=== PATIENT | female | born 1990 | race Caucasian/White ===

== ENCOUNTER 2021-03-23 15:55 | Emergency (ER) | END 2021-03-23 16:20 | disposition left against medical advice (07) | LOC: CSHERS 15:55 | DX: Z53.21 Procedure and treatment not carried out due to patient leaving prior to being seen by health care provider (principal) ==

== ENCOUNTER 2022-06-29 13:04 | Emergency (ER) | payer BC ==
[2022-06-29 14:06] LABS: #Basophils 0.1 10x3/uL (0.0-0.2); #Eosinphils 0.1 10x3/uL (0.0-0.5); #Monocytes 0.4 10x3/uL (0.0-1.1); #Neutrophils 6.5 10x3/uL (1.5-8.4); %Basophils 0.5 % (0.0-2.0); %Eosinophils 0.6 % (0.0-6.0); %Lymphocytes 28.2 % (18.0-47.0); %Monocytes 4.4 % (0.0-10.0); %Neutrophils 65.9 % (40.0-75.0); Hemoglobin 11.8 g/dL (12.0-15.5); Mean Corpuscular HGB CONC 34.3 g/dL (32.0-36.0); Mean Corpuscular Hemoglobin 30.3 pg (27.0-33.0); Mean Corpuscular Volume 88.4 fl (81.6-98.3); Mean Platelet Volume 9.7 fl (7.4-10.4); Platelet Count 219 10x3/uL (150-450); RBC Distribution Width 13.6 % (11.5-14.5); Red Blood Cell (RBC) Count 3.89 10x6/uL (3.90-5.03); White Blood Cell (WBC) Count 9.9 10x3/uL (3.5-10.5)
[2022-06-29 14:17] LABS: Bilirubin Neg (Negative); Blood, Urine Negative (Negative); Clarity Clear (Clear); Glucose, Urine (Dipstick) Normal (Negative); Ketone, Urine Negative (Negative); Leukocyte Negative (Negative); Nitrite Negative (Negative); Protein, Urine (Dipstick) Negative (Neg-Trace); Specific Gravity, Urine 1.005 (1.005-1.030); Urobilinogen Normal mg/dL (Less than 2); pH, Urine 6.5 (5.0-9.0)
[2022-06-29 14:28] LABS: ALT (SGPT) 6 U/L (8-55); AST (SGOT) 14 U/L (5-34); Albumin 4.1 g/dL (3.5-5.0); Alkaline Phosphatase 49 U/L (40-110); Anion Gap 14 mmol/L (10-20); BUN (Urea Nitrogen) Less than 4 mg/dL (7.0-18.7); Bilirubin, Total 0.2 mg/dL (0.2-1.2); Calc. Creatinine Clearance 0 mL/min (70-130); Calcium 9.1 mg/dL (7.8-10.44); Carbon Dioxide 20 mmol/L (22-29); Chloride 106 mmol/L (98-107); Estimated GFR 122; Globulin 2.5 g/dL (2.4-3.5); Glucose 81 mg/dL (70-105); Protein, Total 6.6 g/dL (6.0-8.3); Sodium 136 mmol/L (136-145)
== END 2022-06-29 17:28 | disposition home or self-care (01) ==
LOC: CSHERS 13:04
DX: O20.9 Hemorrhage in early pregnancy, unspecified (principal); Z3A.09 9 weeks gestation of pregnancy
CPT/HCPCS: 36415; 76856; 80053; 81003; 84702; 85025; 86900; 86901

== ENCOUNTER 2022-09-03 09:08 | Outpatient (CLI) | payer BC | END 2022-09-03 09:09 | disposition home or self-care (01) | LOC: CSHULT 09:08 | PROVIDERS: ATTEND Nurse Practitioner Women's Health | DX: Z34.81 Encounter for supervision of other normal pregnancy, first trimester (principal) | CPT/HCPCS: 76805 ==

== ENCOUNTER 2022-12-24 10:29 | Inpatient (IN) | payer BC ==
[2022-12-24 11:30] VITALS: BMI 24.7
[2022-12-24 12:15] LABS: Fetal Membranes Rupture No Membranes Rupture (No Rupture)
[2022-12-24] MEDS ORDERED: hydrALAZINE 20 MG/ML VIAL SLOW IVP PRN ×3 (13:06→21:43)
[2022-12-24] MEDS ORDERED: Lactated Ringer's 1,000 ML IV SCH (13:15)
[2022-12-24] MEDS ORDERED: fentaNYL 50 mcg/mL 1 mL Vial SLOW IVP PRN (13:15)
[2022-12-24] MEDS ORDERED: Diphenoxylate HCl/Atropine Tablet PO PRN (13:15)
[2022-12-24] MEDS ORDERED: HYDROcodone/Acetaminophen 5/325 mg Tablet PO PRN ×2 (13:15→21:43)
[2022-12-24] MEDS ORDERED: Oxytocin 30 units/NS 500 ML 500 ML IV SCH ×3 (13:15)
[2022-12-24] MEDS ORDERED: Acetaminophen 500 MG TAB PO PRN (13:15)
[2022-12-24] MEDS ORDERED: Ondansetron PF 4 MG/2 ML Vial IVP PRN ×2 (13:15→21:43)
[2022-12-24] MEDS ORDERED: Methylergonovine 0.2 MG/ML VIAL IM PRN (13:15)
[2022-12-24] MEDS ORDERED: Misoprostol 200 MCG TAB PR PRN (13:15)
[2022-12-24] MEDS ORDERED: Promethazine HCl 25 MG/ML VIAL IM PRN ×2 (13:15→21:43)
[2022-12-24] MEDS ORDERED: Lidocaine 1% (PF) 30 ML VIAL SC PRN (13:15)
[2022-12-24] MEDS ORDERED: Tranexamic Acid 1,000 MG/10 ML VIAL IVP PRN (13:15)
[2022-12-24] MEDS ORDERED: Carboprost 250 MCG/ML AMP IM PRN (13:15)
[2022-12-24] MEDS ORDERED: Ibuprofen 800 MG TAB PO PRN (13:15)
[2022-12-24 13:55] LABS: Hematocrit 33.4 % (34.9-44.5); Mean Corpuscular HGB CONC 32.9 g/dL (32.0-36.0); Mean Corpuscular Hemoglobin 28.4 pg (27.0-33.0); Mean Corpuscular Volume 86.3 fl (81.6-98.3); Mean Platelet Volume 10.6 fl (7.4-10.4); Platelet Count 231 10x3/uL (150-450); RBC Distribution Width 14.5 % (11.5-14.5); Red Blood Cell (RBC) Count 3.87 10x6/uL (3.90-5.03); White Blood Cell (WBC) Count 14.5 10x3/uL (3.5-10.5)
[2022-12-24] MEDS ORDERED: Oxytocin 30 units/NS 500 ML 500 ML ONE ×2 (14:20→21:55)
[2022-12-24] MEDS: AMPicillin 1 GM in Sodium Chloride 0.9% 100 ML IVPB SCH (14:30)
[2022-12-24 14:45] LABS: Syphilis Antibody Nonreactive (Nonreactive); Syphilis Antibody Index 0.06 S/CO (<1.00 Non-Reactive)
[2022-12-24 14:46] LABS: HBSAg Index 0.16 S/CO (0-0.99); Hep B Surf Ag - L&D Non-Reactive S/CO (NonReactive)
[2022-12-24] MEDS ORDERED: PHENYLEPHRINE-NS 100 MCG/ML 10 ML SYRINGE ONE (17:32)
[2022-12-24] MEDS ORDERED: Ondansetron PF 4 MG/2 ML Vial ONE (17:32)
[2022-12-24] MEDS ORDERED: fentaNYL 50 mcg/mL 1 mL Vial ONE (17:57)
[2022-12-24] MEDS ORDERED: Midazolam HCl 2 mg/2 ml Vial ONE (17:57)
[2022-12-24] MEDS ORDERED: ePHEDrine Sulfate 50 MG/10 ML VIAL ONE (17:58)
[2022-12-24] MEDS ORDERED: Famotidine/PF 20 mg/2ml Vial ONE (18:18)
[2022-12-24] MEDS ORDERED: Azithromycin 500 MG in Sodium Chloride 0.9% 250 ML 250 ML IVPB ONE (20:15)
[2022-12-24 21:12] LABS: Hematocrit 25.9 % (34.9-44.5); Hemoglobin 8.3 g/dL (12.0-15.5); Mean Corpuscular Hemoglobin 28.4 pg (27.0-33.0); Mean Corpuscular Volume 88.7 fl (81.6-98.3); Mean Platelet Volume 10.5 fl (7.4-10.4); Platelet Count 200 10x3/uL (150-450); RBC Distribution Width 14.6 % (11.5-14.5); Red Blood Cell (RBC) Count 2.92 10x6/uL (3.90-5.03); White Blood Cell (WBC) Count 20.2 10x3/uL (3.5-10.5)
[2022-12-24] MEDS ORDERED: Boostrix 0.5 ML (Tdap) VIAL (>/=7 yrs of age) IM ONE (21:43)
[2022-12-24] MEDS ORDERED: diphenhydrAMINE 25 MG CAP PO PRN (21:43)
[2022-12-24] MEDS ORDERED: Lanolin Ointment 7 GM TUBE TOP PRN (21:43)
[2022-12-24] MEDS ORDERED: Bisacodyl 10 MG SUPP PR PRN (21:43)
[2022-12-24] MEDS ORDERED: Milk Of Magnesia 30 ML UDCUP PO PRN (21:43)
[2022-12-24] MEDS ORDERED: Docusate 100 MG CAP PO SCH (22:00)
[2022-12-24] MEDS: CEFAZOLIN 2 GM in Sodium Chloride 0.9% 100 ML IVPB SCH (22:03)
[2022-12-24] MEDS: Ibuprofen 800 MG TAB PO SCH (23:17)
[2022-12-25] MEDS: CEFAZOLIN 2 GM in Sodium Chloride 0.9% 100 ML IVPB SCH ×2 (05:53→12:31)
[2022-12-25] MEDS: Ibuprofen 800 MG TAB PO SCH ×3 (05:53→21:45)
[2022-12-25 07:02] LABS: Hemoglobin 6.6 g/dL (12.0-15.5); Mean Corpuscular Hemoglobin 28.7 pg (27.0-33.0); Mean Platelet Volume 10.8 fl (7.4-10.4); Platelet Count 187 10x3/uL (150-450); RBC Distribution Width 14.7 % (11.5-14.5); White Blood Cell (WBC) Count 14.3 10x3/uL (3.5-10.5)
[2022-12-25] MEDS: AMPicillin 1 GM in Sodium Chloride 0.9% 100 ML IVPB SCH (07:32)
[2022-12-25] MEDS: Prenatal Vitamin 1 TAB PO SCH (08:23)
[2022-12-25] MEDS: Docusate 100 MG CAP PO SCH ×2 (08:23→21:45)
[2022-12-25] MEDS: Ferrous Sulfate 325 MG TAB PO SCH (08:23)
[2022-12-25] MEDS ORDERED: Docusate 100 MG CAP PO SCH (09:00)
[2022-12-26] MEDS: Ibuprofen 800 MG TAB PO SCH ×3 (05:27→22:00)
[2022-12-26 05:48] LABS: Hematocrit 18.3 % (34.9-44.5); Hemoglobin 5.8 g/dL (12.0-15.5); Mean Corpuscular HGB CONC 31.7 g/dL (32.0-36.0); Mean Corpuscular Hemoglobin 28.2 pg (27.0-33.0); Mean Corpuscular Volume 88.8 fl (81.6-98.3); Mean Platelet Volume 10.8 fl (7.4-10.4); Platelet Count 185 10x3/uL (150-450); RBC Distribution Width 14.8 % (11.5-14.5); Red Blood Cell (RBC) Count 2.06 10x6/uL (3.90-5.03); White Blood Cell (WBC) Count 12.5 10x3/uL (3.5-10.5)
[2022-12-26] MEDS: Prenatal Vitamin 1 TAB PO SCH (08:07)
[2022-12-26] MEDS: Ferrous Sulfate 325 MG TAB PO SCH ×3 (08:07→19:23)
[2022-12-26] MEDS: Docusate 100 MG CAP PO SCH ×2 (08:07→22:00)
[2022-12-26] MEDS ORDERED: Azithromycin 500 MG in Sodium Chloride 0.9% 250 ML 250 ML IVPB SCH (10:00)
[2022-12-27] MEDS: Ibuprofen 800 MG TAB PO SCH ×3 (05:18→21:11)
[2022-12-27 06:11] LABS: Hematocrit 24.6 % (34.9-44.5); Hemoglobin 7.9 g/dL (12.0-15.5); Platelet Count 213 10x3/uL (150-450)
[2022-12-27] MEDS: Prenatal Vitamin 1 TAB PO SCH (09:19)
[2022-12-27] MEDS: Ferrous Sulfate 325 MG TAB PO SCH ×2 (09:19→16:46)
[2022-12-27] MEDS: Docusate 100 MG CAP PO SCH ×2 (09:19→21:12)
[2022-12-27] MEDS: Labetalol HCl 100 MG TAB PO SCH ×2 (14:14→21:12)
[2022-12-27] MEDS ORDERED: hydrALAZINE 20 MG/ML VIAL SLOW IVP SCH (16:45)
[2022-12-27 16:53] LABS: Creatinine, Urine Less than 20.00 mg/dL (47-110); Protein, Urine Random Quant Less than 10 mg/dL (1-14)
[2022-12-28] MEDS: Ibuprofen 800 MG TAB PO SCH ×2 (05:59→13:39)
[2022-12-28] MEDS: Labetalol HCl 100 MG TAB PO SCH ×2 (06:00→13:39)
[2022-12-28] MEDS: Ferrous Sulfate 325 MG TAB PO SCH (07:59)
[2022-12-28] MEDS: Docusate 100 MG CAP PO SCH (07:59)
[2022-12-28] MEDS: Prenatal Vitamin 1 TAB PO SCH (07:59)
[2022-12-28 11:07] VITALS: BP 143/67; TEMP 98.3
== END 2022-12-28 17:00 | disposition home or self-care (01) | DRG 806 ==
LOC: CSHLD/OP 10:29 → CSHLD 13:15 → CSHPP 22:30
PROVIDERS: ADMIT Family Medicine; ATTEND Family Medicine
PROC: 10E0XZZ Delivery of Products of Conception, External Approach (ICD-10-PCS; principal; 2022-12-24)
PROC: 3E033VJ Introduction of Other Hormone into Peripheral Vein, Percutaneous Approach (ICD-10-PCS; 2022-12-24)
PROC: 3E033XZ Introduction of Vasopressor into Peripheral Vein, Percutaneous Approach (ICD-10-PCS; 2022-12-24)
PROC: 10D17Z9 Manual Extraction of Products of Conception, Retained, Via Natural or Artificial Opening (ICD-10-PCS; 2022-12-24)
PROC: 30233N1 Transfusion of Nonautologous Red Blood Cells into Peripheral Vein, Percutaneous Approach (ICD-10-PCS; 2022-12-26)
DX: O42.013 Preterm premature rupture of membranes, onset of labor within 24 hours of rupture, third trimester (principal); O72.0 Third-stage hemorrhage; Z37.0 Single live birth; Z3A.35 35 weeks gestation of pregnancy; O36.5930 Maternal care for other known or suspected poor fetal growth, third trimester, not applicable or unspecified; O99.334 Smoking (tobacco) complicating childbirth; F17.290 Nicotine dependence, other tobacco product, uncomplicated; Z79.899 Other long term (current) drug therapy; O99.02 Anemia complicating childbirth; D50.9 Iron deficiency anemia, unspecified; K21.9 Gastro-esophageal reflux disease without esophagitis; O99.62 Diseases of the digestive system complicating childbirth; J44.9 Chronic obstructive pulmonary disease, unspecified; O99.52 Diseases of the respiratory system complicating childbirth
CPT/HCPCS: 36415; 36430; 51702; 82570; 84112; 84156; 85014; 85018; 85027; 85049; 86780; 86850; 86900; 86901; 87340; 87480; 87510; 87660; 88305; 99285; J0290; J0360; J0456; J2250; J2405; J2590; J3010; J3490; J7050; P9016; S0028